=== PATIENT | female | born 1970 | race Caucasian/White ===

== ENCOUNTER 2017-07-24 18:32 | Day surgery (SDC) | payer MEDICAID, OTHER ==
[2017-07-24 19:03] LABS: BASOPHILS # (AUTO) 0.1 10^3/uL (0.0-0.1); BASOPHILS % (AUTO) 0.5 %; EOSINOPHILS # (AUTO) 0.1 10^3/uL (0.0-0.7); EOSINOPHILS % (AUTO) 0.8 %; HGB - HEMOGLOBIN 13.6 g/dL (12.0-16.0); LYMPHOCYTES % (AUTO) 14.3 %; MEAN CORPUSCULAR HEMOGLOBIN 28.4 pg (27.0-31.0); MEAN CORPUSCULAR HGB CONC 33.3 g/dL (32.0-36.0); MEAN CORPUSCULAR VOLUME 85.2 fL (81.0-99.0); MEAN PLATELET VOLUME 8.5 fL (7.9-10.8); MONOCYTES # (AUTO) 0.7 10^3/uL (0.0-1.0); MONOCYTES % (AUTO) 4.6 %; NEUTROPHILS # (AUTO) 11.3 10^3/uL (1.5-6.6); NEUTROPHILS % (AUTO) 79.8 %; PLT - PLATELET COUNT 302 10^3/uL (130-450); RED CELL DISTRIBUTION WIDTH 14.5 % (12.0-15.0); WHITE BLOOD COUNT 14.2 x10^3/uL (4.8-10.8)
[2017-07-24 19:04] LABS: BILIRUBIN,URINE NEGATIVE (NEGATIVE); GLUCOSE, URINE (UA) NEGATIVE (NEGATIVE); KETONES,URINE (UA) TRACE mg/dL (NEGATIVE); LEUKOCYTE ESTERASE, URINE NEGATIVE (NEGATIVE); NITRITE,URINE NEGATIVE (NEGATIVE); OCCULT BLOOD,URINE LARGE (NEGATIVE); PROTEIN,URINE NEGATIVE (NEGATIVE); UROBILINOGEN,URINE 0.2 (NORMAL) E.U./dL (NORMAL)
[2017-07-24 19:06] LABS: CLARITY,URINE CLEAR (CLEAR); HCG UR QUAL NEGATIVE
[2017-07-24 19:16] LABS: ALBUMIN 4.3 g/dL (3.2-5.5); ALKALINE PHOSPHATASE 68 IU/L (42-121); ALT ALANINE AMINOTRANSFERASE 15 IU/L (10-60); AST ASPARTATE AMINOTRANSFERASE 19 IU/L (10-42); BILIRUBIN,TOTAL 0.4 mg/dL (0.2-1.0); BUN - BLOOD UREA NITROGEN 10 mg/dL (6-20); CALCIUM 9.3 mg/dL (8.5-10.3); CARBON DIOXIDE - CO2 27 mmol/L (21-32); CHLORIDE 96 mmol/L (101-111); GLUCOSE 117 mg/dL (70-100); LIPASE 25 U/L (22-51); SODIUM 133 mmol/L (135-145); TOTAL PROTEIN 8.4 g/dL (6.7-8.2)
[2017-07-24 19:17] LABS: CREATININE < 0.3 mg/dL (0.4-1.0); GFR - MDRD 237 (>89)
--- NOTE | 2017-07-24 19:21 | ED Physician Documentation ---
PD HPI ABD PAIN - Stated complaint Stated Complaint: ABD PX - Chief complaint Chief Complaint: Abd Pain - History obtained from History obtained from: Patient - History of Present Illness Timing - onset: How many days ago (3) Timing - duration: Days (3) Timing - details: Abrupt onset, Still present, Waxing and waning (more consistent and painful the past day.) Quality: Cramping, Aching, Pain, Other Location: RUQ Radiation: Upper back Improved by: No: Eating, Position Worsened by: Eating, Breathing, Palpation Associated symptoms: Nausea, Vomiting. No: Fever, Hematemesis, Diarrhea, Constipation, Dysuria, Hematuria, Dizzy Similar symptoms before: Has not had sx before Recently seen: Not recently seen Review of Systems Constitutional: reports: Myalgias. denies: Fever, Chills Nose: denies: Rhinorrhea / runny nose, Congestion Throat: denies: Sore throat Respiratory: denies: Cough GI: reports: Abdominal Pain, Nausea, Vomiting. denies: Abdominal Swelling, Constipation, Diarrhea : denies: Dysuria, Frequency, Discharge Skin: denies: Rash Neurologic: reports: Generalized weakness. denies: Focal weakness, Numbness, Near syncope Endocrine: denies: Weight loss, Easy bruising / bleeding Immunocompromised: denies: Immunocompromised PD PAST MEDICAL HISTORY - Past Medical History Past Medical History: No - Past Surgical History Past Surgical History: Yes /NEWS ASSISTANT: Tubal ligation - Present Medications Home Medications: Ambulatory Orders Medication Instructions Recorded Confirmed No Known Home Medications [No 07/24/17 07/24/17 Known Home Medications] - Allergies Allergies/Adverse Reactions: Allergies Allergy/AdvReac Type Severity Reaction Status Date / Time No Known Drug Allergies Allergy Verified 07/24/17 18:47 - Living Situation Living Situation: reports: With spouse/s.o. Living Arrangement: reports: At home - Social History Does the pt smoke?: No Smoking Status: Never smoker Does the pt have substance abuse?: No - Family History Family history: reports: Non contributory PD ED PE NORMAL - Vitals Vital signs reviewed: Yes - General General: Alert and oriented X 3, Well developed/nourished, Other (in considerable pain, holding upper abd. ) - HEENT HEENT: PERRL (nonicteric), Pharynx benign - Neck Neck: Supple, no meningeal sign, No adenopathy - Cardiac Cardiac: RRR, No murmur - Respiratory Respiratory: Clear bilaterally - Abdomen Abdomen: Soft, Non distended, No organomegaly, Other (decreased bowel sounds. Very tender RUQ with guarding and percussion tender. Lower abd not tender. ) - Female Female : Deferred - Rectal Rectal: Deferred - Back Back: No CVA TTP - Derm Derm: Normal color - Extremities Extremities: No deformity, No tenderness to palpate, Normal ROM s pain - Neuro Neuro: Alert and oriented X 3, No motor deficit, Normal speech - Psych Psych: Normal mood, Normal affect Results - Vitals Vitals: Vital Signs - 24 hr 07/24/17 07/24/17 18:40 21:23 Temperature 36.6 C Heart Rate 83 75 Respiratory 18 16 Rate Blood Pressure 146/99 H 145/90 H O2 Saturation 100 99 Oxygen O2 Source Room air - Labs Labs: Laboratory Tests 07/24/17 07/24/17 07/24/17 18:50 18:55 18:55 WBC 14.2 H RBC 4.80 Hgb 13.6 Hct 40.9 MCV 85.2 MCH 28.4 MCHC 33.3 RDW 14.5 Plt Count 302 MPV 8.5 Neut # 11.3 H Lymph # 2.0 [place] # 0.7 Eos # 0.1 Baso # 0.1 Absolute Nucleated RBC 0.00 Nucleated RBC % 0.0 Sodium 133 L Potassium 3.4 L Chloride 96 L Carbon Dioxide 27 Anion Gap 10.0 BUN 10 Creatinine < 0.3 L Estimated GFR (MDRD) 237 Glucose 117 H Calcium 9.3 Total Bilirubin 0.4 AST 19 ALT 15 Alkaline Phosphatase 68 Total Protein 8.4 H Albumin 4.3 Globulin 4.1 Albumin/Globulin Ratio 1.0 Lipase 25 Urine Color YELLOW Urine Clarity CLEAR Urine pH 6.0 Ur Specific [place] 1.025 Urine Protein NEGATIVE Urine Glucose (UA) NEGATIVE Urine Ketones TRACE Urine Occult Blood LARGE H Urine Nitrite NEGATIVE Urine Bilirubin NEGATIVE Urine Urobilinogen 0.2 (NORMAL) Ur Leukocyte Esterase NEGATIVE Urine RBC 0-5 Urine WBC 4-5 Ur Squamous Epith Cells MOD Squamous H Urine Bacteria Few Urine Casts 0-2 Hyaline Casts Ur Microscopic Review INDICATED Urine Culture Comments NOT INDICATED Urine HCG, Qual NEGATIVE - Rads (name of study) RUQ U/S Radiology: Prelim report reviewed (1.4 cm nonmobile stone within the gallbladder neck. There is gallbladder wall thickening and a positive sonographic Maza sign findings are suspicious for acute cholecystitis no bile duct dilatation.) PD MEDICAL DECISION MAKING - ED course Complexity details: reviewed old records, reviewed results (Blood tests and ultrasound are consistent with acute cholecystitis. There is no ductal dilatation in the liver and pancreas numbers are normal.), re-evaluated patient (She is dam tender in the right upper quadrant though her resting pain is less. I discussed with her potential options of surgery 3 and she would like to go that way. 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
[2017-07-24 19:32] LABS: BACTERIA,URINE Few /HPF (None Seen); RBC,URINE 0-5 /HPF (0-5); SQUAMOUS EPITHELIAL CELL,UR MOD Squamous (<= Few)
[2017-07-24 19:33] LABS: CASTS, URINE 0-2 Hyaline Casts /LPF
[2017-07-24] MEDS ORDERED: SODIUM CHLORIDE 0.9% 1,000 ML IV ONE ×2 (19:43→22:40)
[2017-07-24] MEDS ORDERED: ACETAMINOPHEN 1,000 MG/100 ML 100 ML IV STA (19:43)
[2017-07-24] MEDS ORDERED: HYDROmorphone 1 MG/ML CARPUJECT IVP STA (19:43)
[2017-07-24] MEDS ORDERED: ONDANSETRON 4 MG/2 ML VIAL IVP STA (19:43)
--- NOTE | 2017-07-24 21:21 | Ultrasound Report ---
EXAM: ABDOMEN ULTRASOUND LIMITED, RUQ EXAM DATE: 07/24/2017 08:44 PM. CLINICAL HISTORY: RUQ pain for few days, worsening. COMPARISON: None. TECHNIQUE: Real-time scanning was performed with static images obtained. FINDINGS: Liver: Submitted images of liver demonstrate no focal lesions. Main portal vein flow: Hepatopetal. Gallbladder: There is cholelithiasis. There is gallbladder wall thickening. There is a positive sonog raphic Maza sign. There is a non-mobile 1.4 cm stone in the gallbladder neck region. Biliary System: CBD measures 5 mm. No intrahepatic or extrahepatic ductal dilatation. Other: Right kidney demonstrates no hydronephrosis. IMPRESSION: 1. There is cholelithiasis. There is a 1.4 cm non-mobile stone within the gallbladder neck region. Th ere is gallbladder wall thickening and a positive sonographic Maza sign. Findings are suspicious fo r acute cholecystitis. 2. There is no intra-or extrahepatic bile duct dilatation. [facility] Referring Provider Line: [phone] SITE ID: [id number]
[2017-07-24] MEDS ORDERED: PIPERACILLIN/TAZOBACTAM 3.375 GM in SODIUM CHLORIDE 0.9% MINIBAG 100 ML IV STA (21:55)
[2017-07-25] MEDS ORDERED: LACTATED RINGERS 1,000 ML IV STA (00:09)
[2017-07-25 00:35] LABS: HCG,QUALITATIVE BLOOD NEGATIVE
[2017-07-25] MEDS: HYDROmorphone 1 MG/ML CARPUJECT IVP PRN ×2 (00:40→03:56)
--- NOTE | 2017-07-25 00:41 | CONSULTATION NOTE ---
Referring Provider Name of Referring Provider:: Dr. Derek Huffman Consult Date: 07/24/17 Chief Complaint - Chief Complaint Chief Complaint: Unremitting right upper quadrant pain History of Present Illness - Admitted From Admitted From:: Actually still in Emergency Department - History Obtained From Records Reviewed: Yes History obtained from: Patient Exam Limitations: Language (Slovak preferred speaker) - History of Present Illness HPI Comment/Other: This very pleasant 47 year old female is evaluated in Room 8 of [facility] ED for her unremitting RUQ pain. The pain has had a waxing and waning quality starting Friday about 3 hours after a meal. The pain was described as severe but abated by Friday. It occurred after eating enchiladas. The pain the returned to a lesser degree during the week but returned less than 24 hours ago and will not chinedu. It was associated with nausea and vomiting. She denies constipation, diarrhea, melena, hematemesis or hematochezia. She has never experienced this pain before. It has a penetrating quality to it. 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 Meds/Allgy - Home Medications Home Medications: Ambulatory Orders Medication Instructions Recorded Confirmed No Known Home Medications [No 07/24/17 07/24/17 Known Home Medications] - Allergies Allergies/Adverse Reactions: Allergies Allergy/AdvReac Type Severity Reaction Status Date / Time No Known Drug Allergies Allergy Verified 07/24/17 18:47 Review of Systems - Constitutional Constitutional: denies: Fatigue, Fever, Chills, Malaise, Weakness, Poor appetite - Eyes Eyes: denies: Pain - Ears, Nose & Throat Ears, Nose & Throat: denies: Ear pain - Cardiovascular Cariovascular: denies: Irregular heart rate, Palpitations, Chest pain - Respiratory Respiratory: denies: Cough, Sputum production, Wheezing - Gastrointestinal Gastrointestinal: reports: Abdominal pain, Nausea, Vomiting. denies: Constipation, Diarrhea, Rectal bleeding, Black stools, Bloody stools, Mane blood emesis - Genitourinary Genitourinary: denies: Dysuria - Musculoskeletal Musculoskeletal: denies: Muscle pain, Back pain - Integumentary Integumentary: denies: Rash - Neurological Neurological: denies: General weakness, Focal weakness - Psychiatric Psychiatric: denies: Depression, Anxiety Exam - Vital Signs Reviewed Vital Signs: Yes Vital Signs: Vital Signs x48h Temp Pulse Resp BP Pulse Ox 07/24/17 23:44 69 16 149/94 H 100 07/24/17 23:16 73 18 152/100 H 100 07/24/17 22:23 72 16 153/91 H 100 07/24/17 21:23 75 16 145/90 H 99 07/24/17 18:40 36.6 C 83 18 146/99 H 100 - Physical Exam General Appearance: positive: No acute distress Eyes Bilateral: positive: No lid inflammation, Conjunctivae nml, No scleral icterus ENT: positive: Dry mucous membranes Neck: positive: Trachea midline Respiratory: positive: Chest non-tender, No respiratory distress, Breath sounds nml Cardiovascular: positive: Regular rate & rhythm Abdomen: positive: Tenderness (RUQ especially with deep inspiration), Other ( Well healed incision in umbilicus.) Skin: positive: Color nml Extremities: positive: Nml appearance Neurologic/Psychiatric: positive: Oriented x3 Conclusion/Plan - Diagnosis Diagnosis: Acute cholecystitis - Plan Plan: Laparoscopic cholecystectomy, possible open cholecystectomy, possible intraoperative cholangiogran, possible common bile duct exploration. The indications, procedure, alternatives including no surgery, ingestion of Actigall , possible risks including infection (deep or superficial), bleeding requiring transfusion (with all of its risks), common bile duct injury requring repair and additional surgery, and were fully explained to the patient and all questions answered. I also explained the pathophysiology. I explained that following the surgery I did not want her lifting anything over 15 pounds for 6 weeks to allow for optimal healing and to decrease the likelihood that a hernia would occur. All questions were fully answered. Verbal and written consent was obtained. The patient, in preparation for surgery will be nothing by mouth , and receive 2 gm of Cephalexin with induction. I asked her to contact me with any surgical questions and her concerns and she stated that she would. I asked her to let me know if there is any way we can make her stay at [facility] more comfortable and she stated that she would let me know. The plan is to do this operation as an outpatient procedure and to discharge her home following the procedure. 35 minutes of [id number] time spent with the patient, over 80% in discussion and coordination of her care - Lab Results Lab results reviewed: Yes Fish Bones: 07/24/17 18:55 07/24/17 18:55 - Diagnostic Imaging Results Diagnostic Imaging Results: positive: Prelim report reviewed, Final report reviewed, Read independently
[2017-07-25] MEDS ORDERED: PIPERACILLIN/TAZOBACTAM 3.375 GM in SODIUM CHLORIDE 0.9% MINIBAG 100 ML IV SCH (03:55)
[2017-07-25] MEDS ORDERED: LACTATED RINGERS 1,000 ML IV ONE ×3 (08:00→11:55)
[2017-07-25] MEDS ORDERED: BUPIVACAINE 0.5% PF 30 ML VIAL ONE (08:54)
[2017-07-25] MEDS ORDERED: BUPIVACAINE 0.5% PF 30 ML VIAL SUBQ ONE ×2 (09:35→10:24)
[2017-07-25] MEDS ORDERED: PIPERACILLIN/TAZOBACTAM 3.375 GM in SODIUM CHLORIDE 0.9% MINIBAG 100 ML IV ONE (09:38)
[2017-07-25] MEDS ORDERED: NEOSTIGMINE 1 MG/1 ML 10 ML MDV IVP ONE (09:40)
[2017-07-25] MEDS ORDERED: MIDAZOLAM 2 MG/2 ML VIAL IVP ONE (09:40)
[2017-07-25] MEDS ORDERED: LIDOCAINE-MPF 2% 5 ML VIAL IM ONE (09:40)
[2017-07-25] MEDS ORDERED: ePHEDrine 50 MG/ML VIAL IVP ONE (09:40)
[2017-07-25] MEDS ORDERED: PROPOFOL 200 MG/20 ML VIAL IVP ONE (09:40)
[2017-07-25] MEDS ORDERED: ROCURONIUM 50 MG/5 ML VIAL IVP ONE (09:40)
[2017-07-25] MEDS ORDERED: ONDANSETRON 4 MG/2 ML VIAL IVP ONE (09:40)
[2017-07-25] MEDS ORDERED: ACETAMINOPHEN 1,000 MG/100 ML 100 ML IV ONE (09:40)
[2017-07-25] MEDS ORDERED: GLYCOPYRROLATE 1 MG/5 ML VIAL IVP ONE (09:40)
[2017-07-25] MEDS ORDERED: DEXAMETHASONE 4 MG/ML VIAL IVP ONE (09:40)
[2017-07-25] MEDS ORDERED: ESMOLOL 100 MG/10 ML VIAL IVP ONE (09:40)
--- NOTE | 2017-07-25 10:53 | OPERATIVE REPORT ---
Operative Report - General Procedure Date: 07/25/17 Planned Procedure: Laparoscopic cholecystectomy, possible open cholecystectomy, possible intra Pre-Op Diagnosis: Acute cholecystitis Procedure Performed: Laparoscopic cholecystectomy Post Op Diagnosis: Acute cholecystitis - Procedure Note Primary Surgeon: Derek Mendez MD Anesthesia Provider: Heriberto Acevedo CRNA Anesthesia Technique: General ET tube, Local (30 mL 1/2% marcaine) IV Fluids (mL): 800 Estimated Blood Loss (mL): 10 Complications: None. - Other Other Information/Narrative: OPERATIVE DESCRIPTION/REPORT: After verbal and written informed consent was obtained detailing the risks of infection, bleeding with all of its risks including transfusion, common bile duct injury, and the patient was brought to the operative suite and placed in the supine position on the operating room table. Monitoring devices were applied along with TEDs and pneumatic compressive stockings. Care was taken to avoid pressure points. Prophylactic antibiotics were given. An adequate level of general endotracheal anesthesia was established by [name]. The abdomen was then prepped with ChloraPrep and draped in a sterile fashion. A "time in" then confirmed that the patient was identified with 3 identifiers ( name, date and medical record number), the history and physical was in the chart, the signed consent confirming the procedure was in the chart, the patient was in the correct position, the aforementioned prophylactic measures were in place or given, we had the correct personnel and equipment to complete the procedure and that anesthesia, surgery and nursing were given an opportunity to express any concerns. The initial incision was at the umbilicus excising the previous incision and dissection to the linea alba was completed using blunt dissection. The linea alba was grasped with a Nolan and incised. In a similar manner the peritoneum was grasped and incised using Metzenbaum scissors. In this location, a 12 mm blunt tipped, balloon tipped port was placed and the balloon was inflated to keep the port in position. The abdominal cavity was insufflated with carbon dioxide to steady-state pressure of 15 mmHg. Three additional 5 mm ports were placed in standard location for laparoscopic cholecystectomy (subxiphoid and 2 right subcostal) under direct vision of the 30 degree laparoscope and without incident. The patient was then placed in reverse Trendelenburg position and was rotated slightly to their left. The gallbladder could not be grasped due to edema as well as the gallbladder was under pressure. I opted to decompress the gallbladder with a laparoscopic needle attached to a 60 mL syringe. Clear almost colorless bile was removed. At this point the gallbladder softened enough for me to grasp it. The gallbladder fundus was grasped with an atraumatic grasper. Multiple adhesions had to be taken down by blunt and sharp dissection along with electrocautery. Eventually, we identified the infundibulum, and this was then grasped and retracted inferior and laterally. Dissection was then begun in the angle of [place]. The cystic duct and (slightly medially and posteriorly) cystic artery were clearly identified. The cystic artery was doubly clipped proximally and distally and transected. The critical view was obtained. Two clips proximally and one clip distally were used to control the cystic duct. The clips were carefully placed to avoid occluding the juncture with the common bile duct. The cystic duct awas then transected with laparoscopic gael. The gallbladder was then removed from its fossa in a retrograde fashion using electrocautery. With the 30 degree 5 mm scope in the subxiphoid position, the gallbladder was placed in an EndoCatch bag to be extracted through the 12 mm port site. I irrigated the right upper quadrant with a liter of warm sterile saline, and the area was aspirated dry. I inspected the gallbladder fossa and there was no bleeding or bile leak. Clips on the cystic duct and cystic artery appeared to be secure. I briefly visually explored the abdomen. There was no other evidence of overt pathology. I injected the port sites at the peritoneal , fascial, and skin levels under direct vision with 0.5% Marcaine. All ports and the EndoCatch containing the gallbladder were removed. Following gallbladder removal, the remaining carbon dioxide was expelled from the abdomen. The fascia at the umbilicus was reapproximated using 2 [id number] 0 Vicryl sutures. The skin at each port site was approximated using a subcuticular 4-0 Monocryl. The surgical count of instruments, needles and sponges was reported as correct twice. Mastisol, Steri-Strips and sterile surgical dressings were applied. The patient was then awakened from anesthesia, extubated, and having tolerated the procedure well, was transported to the recovery room. No complications were encountered. A "time out" confirmed the operation performed , the fluids given, the estimated blood loss and anesthesia, surgery and nursing were given an opportunity to express any concerns. Dragon disclaimer: This document was created in part using voice recognition technology. Because of the inherent limitations of the system ([employer] user manual states that the licensee understands that speech recognition is a statistical process and that recognition errors are inherent in the process), occasional same sounding word substitutions and grammatical errors do occur and persist despite proofreading. Please read this document for context.
[2017-07-25] MEDS ORDERED: ALBUTEROL NEB 2.5 MG/3 ML INH ONE (11:14)
[2017-07-25 11:46] VITALS: BP 113/70
== END 2017-07-25 00:24 | disposition home or self-care (01) ==
LOC: ED 18:32 → SDS 07-25 00:23
PROVIDERS: ATTEND Surgery
PROC: 0FT44ZZ Resection of Gallbladder, Percutaneous Endoscopic Approach (ICD-10-PCS; principal; 2017-07-25 09:07)
DX: K80.12 Calculus of gallbladder with acute and chronic cholecystitis without obstruction (principal)
CPT/HCPCS: 36415; 47562; 76705; 80053; 81001; 81025; 83690; 84703; 85025; 87070; 87205; 96361; 96365; 96366; 96375; 96376; 99284; 99285; J0131; J1170; J7120; 81003; 87075; 87086; 88304